=== PATIENT | female | born 1985 | race Hispanic/Latino ===

== ENCOUNTER 2016-06-10 13:38 | Emergency (ER) | payer OTHER ==
[~2016-06-10] VITALS: Ht 162.6 cm; Wt 100.0 kg
[~2016-06-10 13:38] MED LIST: HYDR-4003 PO; ONDA8TAB10 PO; PROC10TA PO
[2016-06-10 13:59] VITALS: BP 119/79; PULSE 83; RESP 18; O2SAT 99
--- NOTE | 2016-06-10 14:55 | ED.REPORT ---
HPI-Headache Date of Service Jun 10, 2016 ED Provider: Jake Jones DO The patient is a 30 year old female who presents to the emergency department complaining of a bilateral frontal headache that began earlier today. She tried taking Tylenol and laying down with no relief. She has also noticed nausea, vomiting x1, and photophobia. She denies any recent injuries or traumas. She does not have headaches regularly but does report similar headaches in the past. The last headache she had was about 1-2 years ago. She denies weakness, numbness, problem walking, fever, chills, congestion, cough, abdominal pain or diarrhea. She does not smoke or drink alcohol. Nursing Notes Stated Complaint: NAUSEA/SHAKY/CHILLS/MIGRAINE Chief Complaint: General Complaint Nursing Notes Reviewed: Yes Allergies: Coded Allergies: Penicillins (Verified Allergy, Severe, HIVES, 09/08/15) clindamycin (Verified Allergy, Severe, RASH, 09/08/15) cephalexin (Verified Allergy, Unknown, UNKNOWN, 09/08/15) vancomycin (Verified Allergy, Unknown, UNKNOWN, 09/08/15) doxycycline (Verified Adverse Reaction, Intermediate, Nausea,Vomiting, 09/07) Scheduled Prochlorperazine Maleate (Compazine) 10 Mg Tablet 10 MG PO TID Scheduled PRN Naproxen (Naproxen) 500 Mg Tablet.dr 500 MG PO BID PRN PRN For Pain General Time Seen by MD: 14:54 Chief Complaint Headache Hx Obtained From: Patient Arrived By: Walk-in Sudden in Onset?: Yes Onset Occurred: 5 - 8 hours ago Symptom Duration: Since onset Location: : Frontal bilateral Quality: Painful Severity: Current: Moderate Severity: Maximum: Severe Recent Healthcare: No recent doctor visit, No recent hospitalization Similar Sx Previous: Yes Past Medical History Past Medical History h/o chlamydia Past Surgical History x5 Reports: Appendectomy Reports: Tubal ligation Family History Noncontributory Smoking History Never Smoker Social History Alcohol Use: Denies alcohol use Drug Use: Denies drug use Other Social History: Lives with children, Local resident Ambulatory Status Independent Review of Systems Constitutional: Denies: Chills, Fever Eyes: Reports: Photophobia Ears / Nose / Throat: Denies: Nasal congestion GI: Reports: Nausea, Vomiting, Denies: Abdominal pain, Diarrhea Neurologic: Reports: Headache, Denies: Focal weakness, Numbness, Problem walking Complete sys rev & neg: except as marked. Respiratory: Denies: Non-productive cough Physical Exam Initial Vital Signs Vital Signs (First) Date Time Temp Pulse Resp B/P Pulse Ox O2 Delivery O2 Flow Rate FiO2 06/10/16 13:59 36.2 83 18 119/79 99 Room Air Initial VS: Reviewed ENT: Mucous membranes moist, Conjunctiva normal, No scleral icterus Respiratory: No respiratory distress Lymphatic: No lymphadenopathy Extremities: Vascular intact, Neuro intact, No swelling, No tenderness Skin: Warm, Dry, No cyanosis Psychiatric: Mood/affect normal, Behavior normal, Normal thought content General/Constitutional: Awake, Alert, Cooperative Distress / Hydration: Positive: Distress moderate Head / Eyes: Atraumatic, Normocephalic, PERRL, EOMI Neck: Supple, No meningismus, Full range of motion, No swelling, Non-tender, No masses Neurologic: Oriented X3, Speech NL, No motor deficits, No sensory deficits Re-Eval/Medical Decision Med Decision/Clinical Course Headaches similar to prior headaches, defers diagnostic evaluation symmetrically requesting medication. Feeling significantly better after medication and will be discharged. Source of Hx: Old records Re-Evaluation/Progress #1: Time of Eval: 15:10 Re-Evaluation/Progress Note: The patient declines diagnostic evaluation and would just like medication. Re-Evaluation/Progress #2: Time of Eval: 15:52 Re-Evaluation/Progress Note: Rechecked the patient. She is feeling better. Discussed plan for discharge. All questions were addressed. Counseled Regarding: Diagnosis, Need for follow-up, When/why to return to ED Discharge & Departure Impression: Primary Impression: Headache Headache type: unspecified Headache chronicity pattern: unspecified pattern Intractability: not intractable Qualified Code: R51 - Headache Disposition: Home Discharge Condition All VS Reviewed: Yes Condition: Stable Patient Instructions: Migraine Headache (ED) Additional Instructions: Thank you for entrusting us with your care today. I am glad you are feeling better. Take Compazine and naproxen as needed. Make sure to drink plenty of fluids. You should followup with your regular doctor next week. Please return to the emergency department if you develop increased pain, visual changes, uncontrollable vomiting, or for any new or concerning symptoms. [facility] Att[facility] Portions of this note were transcribed by Leta Coy. I, Dr. Jones personally performed the history, physical exam and medical decision-making; I reviewed and confirmed the accuracy of the information in the transcribed note. Signed by: Russell Flores, 06/10/2016 and [id number]. copies to: [facility] Jake Jones DO Jun 10, 2016 14:55 Leta Coy Jun 10, 2016 15:06
[2016-06-10] MEDS ORDERED: 0.9% Sodium Chloride 1,000 ML IV ONE (15:03)
[2016-06-10] MEDS ORDERED: Ketorolac 15 mg/mL Inj IVPUSH ONE (15:05)
[2016-06-10] MEDS ORDERED: ProchlorPERazine 5 mg/mL 2 mL Inj IVPUSH ONE (15:05)
[2016-06-10] MEDS ORDERED: NAPR500T5 PO (16:01)
[2016-06-10] MEDS ORDERED: PROC-4 PO (16:01)
[2016-06-10 16:33] VITALS: BP 104/67; PULSE 72; RESP 16; O2SAT 99
== END 2016-06-10 16:35 | disposition home or self-care (01) ==
LOC: SED 13:38
DX: R51 Headache (principal); R11.2 Nausea with vomiting, unspecified; H53.149 Visual discomfort, unspecified; Z88.0 Allergy status to penicillin; Z88.1 Allergy status to other antibiotic agents
CPT/HCPCS: 96361; 96374; 96375; 99284; J0780; J1200; J1885; J7030